=== PATIENT | male | born 1985 | race Caucasian/White ===

== ENCOUNTER 2016-05-07 13:40 | Emergency (ER) | payer MEDICAID ==
[2016-05-07] MEDS ORDERED: IBUPROFEN 400 MG TABLET PO ONE (14:37)
[2016-05-07] MEDS ORDERED: ACETAMINOPHEN 325 MG TABLET PO ONE (14:37)
[2016-05-07] MEDS ORDERED: NORMAL SALINE 1,000 ML IV ONE (14:58)
[2016-05-07 15:11] LABS: MEAN CORPUSCULAR HEMOGLOBIN 29.4 pg (29.0-35.0)
[2016-05-07 15:23] LABS: BLOOD UREA NITROGEN 14 mg/dL (9-20); C-REACTIVE PROTEIN 9.1 mg/L (<10.0); CHLORIDE 107 mmol/L (98-107); EST GLOMERULAR FILTRATION RATE > 60 mL/min; GLUCOSE 123 mg/dL (70-100); POTASSIUM 3.7 mmol/L (3.5-5.1); SODIUM 142 mmol/L (137-145)
[2016-05-07 15:24] LABS: INFLUENZA A/B INF A & B NEGATIVE
[2016-05-07 15:25] LABS: BASOPHILS 0.2 % (0.0-2.0); EOSINOPHILS 0.3 % (0.0-6.0); LYMPHOCYTES 5.4 % (20.0-40.0); LYMPHOCYTES# 0.5 X 10^3uL (0.8-3.8); MONOCYTES 5.5 % (2.0-10.0); MONOCYTES# 0.5 X 10^3uL (0.2-1.0); NEUTROPHILS 88.6 % (54.0-75.0); NEUTROPHILS# 8.5 X 10^3uL (2.6-6.7)
[2016-05-07 15:37] LABS: HEMOGLOBIN 15.2 g/dL (14.0-18.0); MEAN CELL VOLUME 85.4 fL (84.0-102.0); MEAN CORPUS. HGB CONCENTRATION 34.4 g/dL (32.0-36.0); MEAN PLATELET VOLUME 8.6 fL (7.4-10.4); PLATELET COUNT 190 X 10^3uL (130-440); RED BLOOD COUNT 5.16 X 10^6uL (4.20-6.10); RED CELL DISTRIBUTION WIDTH 12.2 % (11.5-14.5); WHITE BLOOD COUNT 9.5 X 10^3uL (3.9-10.7)
[2016-05-07 15:38] LABS: ERYTHROCYTE SEDIMENTATION RATE 2 MM/HR (0-10)
--- NOTE | 2016-05-07 15:49 | ER PHYSICIAN DOCUMENTATION ---
Physician Documentation [facility] Name:Leonidas Smith Age:30 yrs Sex:Male :1985 Arrival Date:05/07/2016 Time:13:40 Bed1 Private MD: Doyle Lama Disposition: 05/07/16 15:40 Discharged to Home/Self Care. Impression: Viral Illness. - Condition is Good. - Discharge Instructions: VIRAL SYNDROME (Adult). - Prescriptions for Ibuprofen 800 mg Oral Tablet - take 1 tablet by ORAL route every 8 hours As needed take with food; 30 tablet. Tylenol 325 mg Oral Tablet - take 2 tablet by ORAL route every 6 hours as needed; 1 bottle. - Medical Reconciliation form form. - Follow up: Private Physician; When: As needed; Reason: Continuance of care. - Problem is new. - Symptoms have improved. HPI: 05/07 16:38 This 30 yrs old Male presents to ER via Private Vehicle with complaints of jm Fever. 16:38 The patient reports fever, that was measured at 103 degrees Fahrenheit. Onset: The jm symptom(s)/episode began/occurred today. Associated signs and symptoms: Pertinent positives: arthralgias, headache, myalgias, nausea. Severity of symptoms: in the emergency department the symptoms are unchanged. The patient has not experienced similar symptoms in the past. Historical: - Allergies: No known drug Allergies; - Home Meds: 1. gabapentin oral 2. Tramadol Oral 3. duloxetine oral 4. Motrin IB oral - PMHx: Post Concussion Syndrome (March 23, 2016); Depression (March 23, 2016); ANXIETY; - PSHx: None; - Ebola Screening: : Patient negative for fever greater than or equal to 101.5 degrees Fahrenheit, and additional compatible Ebola Virus Disease symptoms. Patient denies exposure to infectious person. Patient denies travel to an Ebola-affected area in the 21 days before illness onset. No symptoms or risks identified at this time. . - Immunization history: Flu Vaccine >1 year. - Social history: Smoking status: Patient states was never smoker of tobacco. Patient/guardian denies using alcohol, street drugs, IV drugs, marijuana. ROS: 14:00 Constitutional: Positive for body aches, chills, fatigue, fever, malaise. jm 14:00 Neck: Positive for stiffness. 14:00 Abdomen/GI: Negative for abdominal pain, nausea, vomiting, diarrhea. 14:00 MS/extremity: Negative for rash. 14:00 Neuro: Positive for headache. Exam: 14:00 Constitutional: The patient appears alert, awake, comfortable. jm 14:00 Eyes: Pupils: equal, round, and reactive to light and accomodation, Corneas: are normal. 14:00 Neck: Thyroid: appears normal, Trachea: is midline with no obvious abnormalities, ROM/movement: pain, that is mild, Meningeal signs: are not present, Kernig's sign is negative, nuchal rigidity, is not appreciated. 14:00 Cardiovascular: Rhythm: regular, Pulses: no pulse deficits are appreciated. 14:00 Respiratory: the patient does not display signs of respiratory distress, Respirations: normal. 14:00 Neuro: Mentation: is normal, Motor: is normal, Gait: is steady. Vital Signs: 13:54 BP 118 / 66; Pulse 61; Resp 18; Temp 99.7; Pulse Ox 91% on R/A; sc1 14:33 Temp 103.0(O); nf [place] Coma Score: 14:50 Eye Response: spontaneous(4). Verbal Response: oriented(5). Motor Response: obeys nf commands(6). Total: 15. MDM: 13:44 Patient medically screened. 16:44 Differential diagnosis: viral Infection, bacterial infection. Data reviewed: vital jm signs, nurses notes, lab test result(s), and as a result, I will discharge patient. Counseling: I had a detailed discussion with the patient and/or guardian regarding: the historical points, exam findings, and any diagnostic results supporting the discharge/admit diagnosis, lab results, the need for outpatient follow up, with the patient's primary care provider. Response to treatment: the patient's symptoms have markedly improved after treatment. ED course: Pt feels much better after meds. Fever is down. Labs show no evidence of bacterial meningitis, but perhaps he has a viral form. . 05/07 15:12 Order name: CBC WITHOUT A DIFFERENTIAL; Complete Time: 15:20 EDMS 05/07 15:24 Order name: CBC AUTO DIF, MDIF/RMOR IF IND; Complete Time: 15:41 EDMS 05/07 15:25 Order name: INFLUENZA A/B; Complete Time: 15:41 EDMS 05/07 15:28 Order name: BASIC METABOLIC PANEL; Complete Time: 15: EDMS 05/07 15:28 Order name: C-REACTIVE PROTEIN; Complete Time: 15:41 EDMS 05/07 15:40 Order name: ERYTHROCYTE SEDIMENTATION RATE; Complete Time: 15:41 EDMS 05/07 14:40 Order name: Iv Saline Lock; Complete Time: 15:03 pool Dispensed Medications: 14:33 Drug: Tylenol 975 mg; Route: PO; nf 14:33 Drug: Ibuprofen 800 mg; {Note: with snack.} Route: PO; nf 14:50 Drug: NS 0.9% 1000 ml; Route: IV; Rate: bolus; Site: right antecubital; nf 16:51 Follow up: IV Status: Completed infusion; IV Intake: 1000ml sc1 Signatures: Viky Rodríguez RN RN ms1 Yadira Bourgeois RN RN nf Doyle Eaton MD MD
--- NOTE | 2016-05-07 15:49 | ER NURSING DOCUMENTATION ---
Nurse's Notes [facility] Name:Leonidas Smith Age:30 yrs Sex:Male :1985 Arrival Date:05/07/2016 Time:13:40 Bed1 Private MD: Diagnosis:Viral Illness Presentation: 05/07 13:51 Presenting complaint: Patient states: body aches, headache, nausea, chills this hi1 morning. Transition of care: Home. Notified ED Physician of patient's arrival and CC Angelito Cai notified. 13:51 Acuity: MAXIMO 3 hi1 13:51 Method Of Arrival: Private Vehicle hi1 Triage Assessment: 13:53 General: Appears distressed, well developed, well nourished, well groomed, Behavior is sc1 cooperative, pleasant. Pain: Denies pain. Derm: Skin is intact. Historical: - Allergies: No known drug Allergies; - Home Meds: 1. gabapentin oral 2. Tramadol Oral 3. duloxetine oral 4. Motrin IB oral - PMHx: Post Concussion Syndrome (March 23, 2016); Depression (March 23, 2016); ANXIETY; - PSHx: None; - Ebola Screening: : Patient negative for fever greater than or equal to 101.5 degrees Fahrenheit, and additional compatible Ebola Virus Disease symptoms. Patient denies exposure to infectious person. Patient denies travel to an Ebola-affected area in the 21 days before illness onset. No symptoms or risks identified at this time. . - Immunization history: Flu Vaccine >1 year. - Social history: Smoking status: Patient states was never smoker of tobacco. Patient/guardian denies using alcohol, street drugs, IV drugs, marijuana. Screenin:55 Infectious Disease Risk None. Abuse screen: Denies threats or abuse. Nutritional sc1 screening: No deficits noted. Vital Signs: 13:54 BP 118 / 66; Pulse 61; Resp 18; Temp 99.7; Pulse Ox 91% on R/A; sc1 14:33 Temp 103.0(O); nf [place] Coma Score: 14:50 Eye Response: spontaneous(4). Verbal Response: oriented(5). Motor Response: obeys nf commands(6). Total: 15. ED Course: 13:42 Patient arrived in ED. ama 13:44 Doyle Eaton MD is Attending Physician. pool 13:50 Viky Rodríguez, RN is Primary Nurse. [facility] 13:52 Triage completed. [facility] [place] 13:55 Notified ED Physician of patient's arrival and chief complaint. Dr. Eaton notified. Arm hi1 band placed on Bed in low position Call Light in Reach Gowned HOB Elevated. 14:33 Diet: Patient given snack. nf 14:50 Flu Swab done. Inserted peripheral IV: 18 gauge in right antecubital area and blood nf collected. saline lock:. 15:04 Valuables Remains with patient. nf Administered Medications: 14:33 Drug: Tylenol 975 mg; Route: PO; nf 14:33 Drug: Ibuprofen 800 mg; {Note: with snack.} Route: PO; nf 14:50 Drug: NS 0.9% 1000 ml; Route: IV; Rate: bolus; Site: right antecubital; nf 16:51 Follow up: IV Status: Completed infusion; IV Intake: 1000ml [facility] Intake: 16:51 IV: 1000ml; Total: 1000ml. [facility] Outcome: 15:40 Discharge ordered by . 15:45 Discharged to home ambulatory. [facility] [place] 15:45 Condition: improved 15:45 Discharge instructions given to patient, Instructed on discharge instructions, follow up and referral plans. medication usage, Demonstrated understanding of instructions, medications, Prescriptions given X 2. 15:49 Patient left the ED. [facility] [place] 05/08 13:59 Discharge F/U Call: Unable to reach: non-working number [facility] Signatures: Viky Rodríguez, RN RN [facility] Yadira Bourgeois RN RN Doyle Mota MD MD jm Averdick, Andrew, Reg Reg ama
== END 2016-05-07 15:50 | disposition home or self-care (01) ==
LOC: ER 13:40
DX: B34.9 Viral infection, unspecified (principal); M79.1 Myalgia; R50.9 Fever, unspecified; R53.83 Other fatigue; R53.81 Other malaise; R51 Headache; Z79.899 Other long term (current) drug therapy
CPT/HCPCS: 80048; 85025; 85651; 86140; 87449; 96360; 96361; 99284; J7030